=== PATIENT | female | born 1985 | race Caucasian/White ===

== ENCOUNTER 2018-03-22 15:25 | Outpatient (REF) | payer MEDICAID, SELFPAY ==
--- NOTE | 2018-03-22 15:00 | PAPFT_PTH ---
PATIENT: Sri Chiang LOC: [facility] U#:[id number] AGE/SX: 32/F ROOM: RE03/22/[address]: Rani Catherine CNM : 1985 BED: DIS: 03/22/2018 SPEC #: [id number] RECD: 03/22/18 17:40 STATUS: LEONORA REHermelindo #: [id number] KANDACE: 03/22/18 15:[address]: Rani Catherine DEPT: [facility] Cytology RECD BY: Maura Napier ENTERED: 03/22/18 17:40 SP TYPE: PAPFT OTHR DR: Risa Noble Tissues: 1 - CX/ENDOCX FOR PAP SMEARS Procedures: PAP THIN PREP/UVM Screening HPV DNA PROBE Comments: [id number]
== END 2018-03-22 15:45 ==
LOC: LBN 15:25
PROVIDERS: PCP Family Medicine; Visit Provider Advanced Practice Midwife
DX: Z12.4 Encounter for screening for malignant neoplasm of cervix (principal); Z11.51 Encounter for screening for human papillomavirus (HPV)
CPT/HCPCS: 88142; 87624

== ENCOUNTER 2018-08-24 21:08 | Emergency (ER) | payer MEDICAID, SELFPAY ==
[2018-08-24 21:14] VITALS: BP 120/75; PULSE 67; RESP 18; TEMP 36.8; O2SAT 100
--- NOTE | 2018-08-24 22:14 | ED.GENADUL_ITS ---
Discharge Plan Disposition Patient Disposition: HOME Condition: Good Discharge Details Chief Complaint: Laceration Clinical Impression: Finger laceration Primary Care Provider: Risa Noble ED Provider: Wesley Escamilla Meds and New Rx's Prescriptions: Continued PNV cmb#95-ferrous fumarate-FA [] 1 EACH tablet 1 ea PO DAILY RF: 0 cholecalciferol (vitamin D3) 2,000 unit tablet 4,000 unit PO DAILY RF: 0 Discharge Instructions Instructions: Finger Laceration (ED) Additional Instructions: Sutures should come out in about 10 days. Watch for signs of infection. Keep the wound clean and dry. Return to ED for suture removal or for any evidence of infection. Referrals: [facility] [Provider Group] Medical Decision Making Patient with a small laceration to the tip of the left ring finger. Still has some bleeding. Because of its location glue not a viable option. Agreed to sutures and digital block. Digital block of the left ring finger done with 1% lidocaine. Wound irrigated. Inadequate anesthesia obtained with digital block. Small amount of 1% lidocaine injected into the wound margins. Still inadequate anesthesia. Patient reports lidocaine use with the dentist does not result in adequate anesthesia either. She elected to have sutures placed with the digital block and local that had been given. Two 5-0 nylon sutures placed. Wound then dressed with Xeroform and gauze by me. Tetanus up-to-date. Patient discharged with instructions to watch for signs of infection and to have sutures out in 10 days. HPI General Mode of arrival: ambulatory . Date/Time Provider Initiated Documentation: 08/24/18 21:19 . Limitations to Documentation: no limitations . Information obtained by: patient . HPI Narrative: Patient presents to ED with a laceration to the tip of her left ring finger. 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 It occurred earlier in the afternoon. It is been bleeding and is quite sensitive and painful. She eventually came in this evening believing it would need sutures since it was still bleeding. She is up-to-date on tetanus. Related Data Home Medications Medication Instructions Recorded Confirmed PNV cmb#95-ferrous fumarate-FA 1 ea PO DAILY 09/13/16 08/24/18 [] cholecalciferol (vitamin D3) 2,000 4,000 unit PO DAILY tab 03/22/18 08/24/18 unit tablet Allergies Allergy/AdvReac Type Severity Reaction Status Date / Time No Known Allergies Allergy Unverified 08/24/18 21:19 General Stated Complaint: Laceration MINNIE: 4 Review of Systems Musculoskeletal Denies tingling Integumentary/Breasts Reports wounds Neurologic Denies tingling and Denies paresthesias [facility] Medical History Duplex kidney Surgical History Repair, ACL Family History Mother Hyperlipidemia Breast cancer Grandmother Breast cancer Social History Smoking/Tobacco Use Status: Never Alcohol Intake: never Do you feel safe in your relationship?: Yes Exam Const General: cooperative, comfortable and no acute distress Orientation: alert and oriented x3 Skin Trauma: laceration Other: Approximately 0.5 cm laceration to the tip of the left ring finger. No involvement of the nail or nailbed. Extrem Other: Left hand with no swelling, decreased range of motion, weakness, or sensory deficit. Course Vital Signs Temperature 98.2 F 08/24/18 21:14 Pulse 67 08/24/18 21:14 Respiratory Rate 18 08/24/18 21:14 Blood Pressure 120/75 08/24/18 21:14 Pulse Oximetry 100 08/24/18 21:14 Temperature 98.2 F 08/24/18 21:14 Temperature Source Skin 08/24/18 21:14 Pulse 67 08/24/18 21:14 Respiratory Rate 18 08/24/18 21:14 Respiratory Effort Non-Labored 08/24/18 21:16 Blood Pressure 120/75 08/24/18 21:14 Blood Pressure Position Supine 08/24/18 21:14 Pulse Oximetry 100 08/24/18 21:14 Oxygen Delivery Method Room Air 08/24/18 21:14 Oxygen Flow Rate 0 08/24/18 21:14 Pain Level 4 08/24/18 21:14 Procedures Laceration Laceration 1: Site: hand Side (If applicable): left Size (cm): 0.5 Description: linear Depth: simple, single layer Local Anesthetic: Lidocaine 1% Pre-repair: irrigated extensively Skin layer closed with: nylon Size (cm): 5-0 Number of sutures: 2 Technique: simple, interrupted Nerve Block Nerve Block 1: Local Anesthetic: Lidocaine 1% Amount of anesthesia used (mL): 2 Side: left Nerve Blocks: digital Procedure Successful: Yes Patient Tolerated Procedure: well Complications: pain with procedure and inadequate anesthesia
== END 2018-08-24 22:19 | disposition home or self-care (01) ==
PROVIDERS: Emergency Provider Emergency Medicine; PCP Family Medicine
DX: S61.215A Laceration without foreign body of left ring finger without damage to nail, initial encounter (principal); W29.0XXA Contact with powered kitchen appliance, initial encounter; Y93.G1 Activity, food preparation and clean up
CPT/HCPCS: 12001

== ENCOUNTER 2018-11-21 10:32 | Outpatient (CLI) | payer BC, SELFPAY ==
--- NOTE | 2018-11-21 10:40 | DI.US_ITS ---
APPROVED REPORT EXAM: Comprehensive 2D, Doppler, and color-flow Echocardiogram Indications: daughter has bicuspid AOV and coarctation of aorta. pediatric dental hygienist reccomended f irst degree family members be tested with ECHO for cardiac anomalies even if asymptomatic family hx o f congenital anomalies z82.79 Left Ventricle The left ventricle is normal. Left ventricular systolic function is normal. The posterior wall thickn ess is mildly increased. The septum is normal. There is normal LV segmental wall motion. The left abbi tricular diastolic function is normal. LVEF is 55-59%. Right Ventricle The right ventricle is normal size. The right ventricular systolic function is normal. Atria The left atrium is normal. The right atrium size is normal. Aortic Valve The aortic valve is normal in structure. There is no aortic valvular stenosis. No aortic regurgitatio n is present. Mitral Valve The mitral valve is normal in structure. There is no mitral valve regurgitation noted. Tricuspid Valve The tricuspid valve is normal in structure. Mild tricuspid regurgitation. Pulmonic Valve The pulmonary valve is normal in structure. There is no pulmonic valvular regurgitation. Great Vessels The aortic root size is normal. The ascending aorta size is normal. The IVC is normal in size and col lapses >50% with inspiration. Pericardium There is no pericardial effusion. 2D Dimensions IVSd 1.0 cm F: 0.6-1.0 PWd 1.0 cm F: 0.6 - 1.0 LVDd 4.7 cm F: 3.9 - 5.3 LVDs 3.3 cm F: 2.2 - 3.5 Aortic Root 3.0 cm F: 2.7 - 3.3 Left Atrium 3.1 cm F: 2.7 - 3.8 LVOT 2.1 cm (M/F) 1.5-2.5 Ascending Aorta 2.8 cm F: 2.3 - 3.1 LVEF (Landers's) 55.1 % F: 54 - 74 LV Volume 62.6 mL F: 46 - 106 LV Volume Index 36.1 mL/m2 F: 29 - 61 FS 30.0 % LV Diastology E/A Ratio 1.9 MED E' 0.1 (<0.07 m/s) LV E/e MED 9.2 (>14) LAT E' 0.2 (<0.1 m/s) LV E/e LAT 4.3 (>14) Aortic Valve LVOT Peak Deandre. 1.1 m/s LVOT Peak Gr. 4.9 mmHg LVOT Mean Gr. 2.7 mmHg LVOT VTI 0.2 m AO VTI 0.3 (0.18-0.25 m) GEORGES (VTI) 1.4 (2.5-4.5 cm2) Mitral Valve MV A Velocity 0.5 (0.4-1.3 m/s) E/A Ratio 1.9 MV Decel. Time 174.0 (160-240 msec) MV PHT 50.5 msec MVA PHT 4.4 cm2 Tricuspid Valve TR P. Velocity 2.2 m/s TR P. Gradient 18.5 mmHg Other Information Study Quality: Good Conclusion Left Ventricle : The posterior wall thickness is mildly increased. The septum is normal. The left abbi tricular diastolic function is normal. Left ventricular systolic function is normal. There is normal LV segmental wall motion. LVEF is 55-59%. Right Ventricle : The right ventricle is normal size. The right ventricular systolic function is norm al. Atria : The left atrium is normal. The right atrium size is normal. Aortic Valve : The aortic valve is normal in structure. There is no aortic valvular stenosis. There is no evidence of bicuspid aortic valve or other aortopathy. Mitral Valve : The mitral valve is normal in structure. There is no mitral valve regurgitation noted. Tricuspid Valve : The tricuspid valve is normal in structure. Mild tricuspid regurgitation. Great Vessels : The aortic root size is normal. Pericardium : There is no pericardial effusion. Great Vessels : The IVC is normal in size and collapses >50% with inspiration.
== END 2018-11-21 10:52 ==
PROVIDERS: PCP Family Medicine; Visit Provider Family Medicine
DX: Z82.49 Family history of ischemic heart disease and other diseases of the circulatory system (principal); Z13.6 Encounter for screening for cardiovascular disorders; I36.1 Nonrheumatic tricuspid (valve) insufficiency
CPT/HCPCS: 93306

== ENCOUNTER 2019-06-28 09:06 | Outpatient (CLI) | payer BC, SELFPAY ==
--- NOTE | 2019-06-28 14:45 | DI.US_ITS ---
EXAM: US PELVIS TRANSVAGINAL CLINICAL HISTORY: pelvic pain and pressure,r10.2. TECHNIQUE: Transabdominal and tranvaginal imaging was performed using standard protocol. COMPARISON: No exams were available for comparison FINDINGS: KIDNEYS: Kidneys are symmetric in size. No evidence of renal calculi. No evidence of hydronephrosis. No renal mass or cyst identified. There is a question of a duplex collecting system of the right dante gomez. UTERUS: Anteverted. The uterus measures 7.9 x 4.5 x 4.9 cm. Endometrium: 6 millimeters in thickness. Myometrium: Unremarkable. Cervix: Unremarkable. OVARIES: Right: Cyst or mass: 1.8 centimeter corpus luteum cyst. Left: Cyst or mass: None. DOPPLER: Color: Symmetric and uniform flow to both ovaries. No hyperemia. Duplex: Normal ovarian arterial waveforms visualized. There is a question of mildly prominent parauterine vessels, right greater than left, which could be seen in pelvic congestion syndrome. CUL-DE-SAC: Free fluid: None. IMPRESSION: 1. Normal-appearing uterus with endometrial stripe within normal limits. Mildly prominent parauterin e vessels which could indicate pelvic congestion syndrome. 2. Unremarkable bilateral ovaries. DATA REPOSITORY:
== END 2019-06-28 09:26 ==
PROVIDERS: PCP Family Medicine; Visit Provider Obstetrics & Gynecology Gynecology
DX: R10.2 Pelvic and perineal pain (principal); N83.11 Corpus luteum cyst of right ovary
CPT/HCPCS: 76830; 76856

== ENCOUNTER 2019-08-17 01:02 | Outpatient (CLI) | payer BC, MEDICAID, SELFPAY ==
[2019-08-17 09:47] LABS: HCT 39.2 % (36.0-46.0); HGB 13.3 g/dL (12.0-15.5); Mean Corp. HGB Concentration 33.9 g/dL (32.0-36.0); Mean Corpuscular Hemoglobin 29.8 pg (27.0-33.0); Mean Corpuscular Volume 87.7 fL (80-95); Mean Platelet Volume 9.9 fL (8.0-11.0); Platelet Count 340 x1000/uL (130-400); RBC 4.47 m/cumm (4.00-5.20); RBC Distribution Width 12.9 % (11.7-14.6); White Blood Cell Count 6.97 k/cumm (4.4-10.8)
[2019-08-17 10:40] LABS: Ferritin 41 ng/mL (8-252); TSH (W/Ref FT4) 2.22 uIU/mL (0.36-3.74)
[2019-08-17 17:28] LABS: Anion Gap 9.5 mmol/L (3-11); BUN 16 mg/dL (7-18); CO2 25.5 mmol/L (21.0-32.0); CREATININE 0.77 mg/dL (0.55-1.02); Calcium 9.4 mg/dL (8.5-10.1); Chloride 103 mmol/L (98-107); Glucose 113 mg/dL (74-106); Potassium 4.1 mmol/L (3.5-5.1); Sodium 138 mmol/L (136-145)
[2019-08-17 17:47] LABS: Calculated LDL 106 mg/dL (<100); Cholesterol 188 mg/dL (<200); HDL Cholesterol 35 mg/dL (40-60); Triglyceride 237 mg/dL (<150)
[2019-08-20 08:24] LABS: Vitamin D 25 Total 26.3 ng/ml (30-100)
== END 2019-08-17 01:22 ==
PROVIDERS: PCP Family Medicine; Visit Provider Advanced Practice Midwife
DX: R53.83 Other fatigue (principal); R63.5 Abnormal weight gain; Z83.49 Family history of other endocrine, nutritional and metabolic diseases; L65.9 Nonscarring hair loss, unspecified; Z82.62 Family history of osteoporosis; Z82.79 Family history of other congenital malformations, deformations and chromosomal abnormalities
CPT/HCPCS: 36415; 80048; 80061; 82306; 85027; 82728; 84443

== ENCOUNTER 2019-10-12 16:29 | Outpatient (REF) | payer BC, MEDICAID, SELFPAY | END 2019-10-12 16:49 | LOC: LBN 16:29 | PROVIDERS: PCP Family Medicine; Visit Provider Advanced Practice Midwife | DX: N89.8 Other specified noninflammatory disorders of vagina (principal) | CPT/HCPCS: 87480; 87510; 87660 ==

== ENCOUNTER 2019-10-17 10:00 | Outpatient (CLI) | payer BC, MEDICAID, SELFPAY ==
[2019-10-17 12:37] LABS: Bilirubin Negative (Negative); Blood Moderate (Negative); Clarity Clear (Clear); Glucose Negative (Negative); Ketones Negative (Negative); Leukocyte Esterase Moderate (Negative); Nitrite Negative (Negative); Urobilinogen 0.2 EU/dL (Up TO 0.2); pH 5.5 (5-8)
[2019-10-17 12:49] LABS: Bacteria Negative HPF (Negative); Casts Negative LPF (Negative); Crystals Negative HPF (Negative); Epithelial Cells Moderate HPF (Negative); Mucus Negative (Negative); WBC >50 HPF (0-5)
[2019-10-17 15:28] LABS: C & S Indicated? C&S Done As Ordered
== END 2019-10-17 10:20 ==
PROVIDERS: PCP Family Medicine; Visit Provider Advanced Practice Midwife
DX: R30.0 Dysuria (principal)
CPT/HCPCS: 87077; 81003; 81015; 87086; 87186

== ENCOUNTER 2019-11-12 20:03 | Outpatient (REF) | payer BC, MEDICAID, SELFPAY ==
[2019-11-15 17:17] LABS: Patient Race White; SARS-CoV-2 RNA Undetected (Undetected); SARS-CoV-2 Specimen Source Nasal
== END 2019-11-12 20:23 ==
LOC: NCHCN 20:03
PROVIDERS: PCP Family Medicine; Visit Provider Nurse Practitioner Family
DX: R50.9 Fever, unspecified (principal); R05 Cough
CPT/HCPCS: U0003

== ENCOUNTER 2020-01-24 20:01 | Outpatient (REF) | payer BC, MEDICAID, SELFPAY ==
[2020-01-28 15:33] LABS: Chlamydia Result Negative (Negative); GC Result Negative (Negative)
== END 2020-01-24 20:21 ==
LOC: LBN 20:01
PROVIDERS: PCP Family Medicine; Visit Provider Advanced Practice Midwife
DX: Z11.3 Encounter for screening for infections with a predominantly sexual mode of transmission (principal)
CPT/HCPCS: 87491; 87591

== ENCOUNTER 2020-02-25 10:48 | Outpatient (REF) | payer BC, MEDICAID, SELFPAY ==
[2020-02-26 15:39] LABS: Chlamydia Result Negative (Negative); GC Result Negative (Negative)
== END 2020-02-25 11:08 ==
LOC: LBN 10:48
PROVIDERS: PCP Family Medicine; Visit Provider Advanced Practice Midwife
DX: N94.89 Other specified conditions associated with female genital organs and menstrual cycle (principal); Z11.3 Encounter for screening for infections with a predominantly sexual mode of transmission
CPT/HCPCS: 87491; 87591; 87480; 87510; 87660

== ENCOUNTER 2020-05-07 01:08 | Outpatient (CLI) | payer BC, SELFPAY ==
--- NOTE | 2020-05-07 06:45 | DI.US_ITS ---
EXAM: US PELVIS TRANSVAGINAL CLINICAL HISTORY: IUD surveillence, right sided pelvic pain,r10.2 TECHNIQUE: Ultrasound of the pelvis was performed both transabdominal and transvaginal. COMPARISON: US US PELVIS TRANSVAGINAL from 06/28/2019 FINDINGS: UTERUS: Measures 6 cm length x 5 cm AP x 5 point cm wide. There are no uterine fibroids.There is an IUD in the uterine canal which appears to be in satisfactor y position Endometrial thickness measures 5 mm. There is no fluid in the endometrial canal. CERVIX: There are no obvious nabothian cysts. RIGHT OVARY: Measures 1.9 x 1.3 x 1.3 centimeter cm Contains follicles and a cyst which measures 11 by 8 millimeters, the dominant follicle. LEFT OVARY: Measures 1.7 x 1.1 x 1.9 cm Small follicles. CUL-DE-SAC: No extraovarian adnexal masses. No free fluid. IMPRESSION: 1. Normal-appearing uterus. IUD within the uterine cavity. 2. There is an 11 x 8 millimeter cyst in right ovary probably a dominant follicle. 3. No free fluid evident in the adnexal regions and cul-de-sac. DATA REPOSITORY:
== END 2020-05-07 01:28 ==
PROVIDERS: PCP Family Medicine; Visit Provider Nurse Practitioner Women's Health
DX: R10.2 Pelvic and perineal pain (principal); N83.201 Unspecified ovarian cyst, right side; Z97.5 Presence of (intrauterine) contraceptive device
CPT/HCPCS: 76830; 76856

== ENCOUNTER 2020-05-07 02:11 | Outpatient (CLI) | payer BC, SELFPAY ==
[2020-05-08 09:31] LABS: Hepatitis B Surface Ag Negative (Negative)
[2020-05-08 10:14] LABS: Hepatitis C Ab w Rflx HCV PCR Negative (Negative)
[2020-05-08 10:22] LABS: HIV-1/2 Ag & Ab Screen Negative (Negative)
[2020-05-08 16:01] LABS: Syphilis Total Ab w/Reflex Nonreactive (Nonreactive)
== END 2020-05-07 02:12 | disposition home or self-care (01) ==
LOC: LBO 02:11
PROVIDERS: PCP Family Medicine; Visit Provider Advanced Practice Midwife
DX: Z34.91 Encounter for supervision of normal pregnancy, unspecified, first trimester (principal); Z11.4 Encounter for screening for human immunodeficiency virus [HIV]; Z11.59 Encounter for screening for other viral diseases
CPT/HCPCS: 36415; 86803; 87340; 87389; 86780

== ENCOUNTER 2020-06-04 10:48 | Outpatient (REF) | payer BC, SELFPAY ==
--- NOTE | 2020-06-03 09:20 | PAPFT_PTH ---
PATIENT: Sri Chiang LOC: [facility] U#:[id number] AGE/SX: 34/F ROOM: RE06/04/[address]: Janna Quiñonez NP : 1985 BED: DIS: 06/04/2020 SPEC #: [id number] RECD: 06/04/20 12:56 STATUS: LEONORA ANDREA #: [id number] KANDACE: 06/03/20 09:[address]: Janna Quiñonez NP DEPT: [facility] Cytology RECD BY: Maura Napier ENTERED: 06/04/20 12:56 SP TYPE: PAPFT OTHR DR: Risa Noble Tissues: 1 - CX/ENDOCX FOR PAP SMEARS Procedures: PAP THIN PREP/[facility]VM Screening HPV DNA PROBE Comments: [id number]
== END 2020-06-04 10:49 | disposition home or self-care (01) ==
LOC: LBN 10:48
PROVIDERS: PCP Family Medicine; Visit Provider Nurse Practitioner Women's Health
DX: Z12.4 Encounter for screening for malignant neoplasm of cervix (principal); Z87.42 Personal history of other diseases of the female genital tract; Z11.51 Encounter for screening for human papillomavirus (HPV)
CPT/HCPCS: 88142; 87624

== ENCOUNTER 2021-02-11 16:00 | Outpatient (REF) | payer BC, SELFPAY ==
[2021-02-13 15:16] LABS: Chlamydia Result Negative (Negative); GC Result Negative (Negative)
== END 2021-02-11 16:01 | disposition home or self-care (01) ==
LOC: LBN 16:00
PROVIDERS: PCP Family Medicine; Visit Provider Advanced Practice Midwife
DX: Z20.2 Contact with and (suspected) exposure to infections with a predominantly sexual mode of transmission (principal)
CPT/HCPCS: 87491; 87591

== ENCOUNTER 2021-02-16 11:22 | Outpatient (CLI) | payer BC, SELFPAY ==
[2021-02-16 15:06] LABS: HCT 40.8 % (36.0-46.0); HGB 13.3 g/dL (11.2-15.7); MCH 29.1 pg (27.0-33.0); MCHC 32.6 % (32.0-36.0); MCV 89.3 fL (80-95); MPV 9.8 fL (8.0-11.0); Platelet Count 393 10^3/uL (130-400); RBC 4.57 10^6/uL (3.93-5.22); RDW 12.8 % (11.7-14.6); RDW-SD 41.9 fL; WBC 10.39 10^3/uL (4.4-10.8)
[2021-02-16 17:02] LABS: TSH (W/Ref FT4) 1.55 uIU/mL (0.36-3.74)
[2021-02-16 17:13] LABS: Vitamin D 25 Total 25.1 ng/mL (30-100)
[2021-02-17 11:56] LABS: HIV-1/2 Ag & Ab Screen Negative (Negative)
[2021-02-17 11:57] LABS: Syphilis Serology (RPR) Negative (Negative)
== END 2021-02-16 11:23 | disposition home or self-care (01) ==
LOC: LBO 11:24
PROVIDERS: PCP Family Medicine; Visit Provider Advanced Practice Midwife
DX: Z20.2 Contact with and (suspected) exposure to infections with a predominantly sexual mode of transmission (principal)
CPT/HCPCS: 36415; 82306; 85027; 87389; 84443; 86592

== ENCOUNTER 2021-05-05 16:28 | Outpatient (REF) | payer BC, SELFPAY ==
[2021-05-07 11:26] LABS: COVID-19 RT-PCR UVMMC Result Negative (Negative)
== END 2021-05-05 16:29 | disposition home or self-care (01) ==
LOC: NCHCN 16:28
PROVIDERS: PCP Nurse Practitioner Family; Visit Provider Nurse Practitioner Family
DX: Z20.822 Contact with and (suspected) exposure to COVID-19 (principal); J02.9 Acute pharyngitis, unspecified
CPT/HCPCS: U0003; 87070

== ENCOUNTER 2021-05-07 17:55 | Outpatient (REF) | payer BC, SELFPAY | END 2021-05-07 17:56 | disposition home or self-care (01) | LOC: LBN 17:55 | PROVIDERS: PCP Nurse Practitioner Family; Visit Provider Physician Assistant Medical | DX: R82.998 Other abnormal findings in urine (principal); J02.9 Acute pharyngitis, unspecified | CPT/HCPCS: 87070; 87086 ==

== ENCOUNTER 2021-06-29 16:18 | Outpatient (REF) | payer BC, SELFPAY ==
--- NOTE | 2021-06-29 16:05 | PAPFT_PTH ---
PATIENT: Sri Chiang LOC: [facility] U#:[id number] AGE/SX: 35/F ROOM: RE06/29/[address]: Unique Stevens CNM : 1985 BED: DIS: 06/29/2021 SPEC #: [id number] RECD: 06/29/21 18:13 STATUS: LEONORA REQ #: [id number] KANDACE: 06/29/21 16:[address]: Unique Stevens DEPT: [facility] Cytology RECD BY: Maura Napier ENTERED: 06/29/21 18:14 SP TYPE: PAPFT OTHR DR: Maximo Leiva Tissues: 1 - CX/ENDOCX FOR PAP SMEARS Procedures: PAP THIN PREP/UVM Screening HPV DNA PROBE Comments: [id number] (CHLAMYDIA/GC)
[2021-07-01 08:41] LABS: Chlamydia Result Negative (Negative); GC Result Negative (Negative)
== END 2021-06-29 16:19 | disposition home or self-care (01) ==
LOC: LBN 16:18
PROVIDERS: PCP Nurse Practitioner Family; Visit Provider Advanced Practice Midwife
DX: N89.8 Other specified noninflammatory disorders of vagina (principal); R30.0 Dysuria; Z12.4 Encounter for screening for malignant neoplasm of cervix; Z11.51 Encounter for screening for human papillomavirus (HPV)
CPT/HCPCS: 87491; 87591; 88142; 87086; 87480; 87510; 87624; 87660

== ENCOUNTER 2021-07-16 10:04 | Outpatient (REF) | payer BC, SELFPAY | END 2021-07-16 10:05 | disposition home or self-care (01) | LOC: LBN 10:04 | PROVIDERS: PCP Nurse Practitioner Family; Visit Provider Advanced Practice Midwife | DX: R30.0 Dysuria (principal) | CPT/HCPCS: 87086 ==

== ENCOUNTER 2021-08-05 19:24 | Outpatient (REF) | payer BC, SELFPAY ==
[2021-08-08 14:15] LABS: COVID-19 RT-PCR UVMMC Result Negative (Negative)
== END 2021-08-05 19:25 | disposition home or self-care (01) ==
LOC: NCHCN 19:24
PROVIDERS: PCP Nurse Practitioner Family; Visit Provider Family Medicine
DX: Z20.822 Contact with and (suspected) exposure to COVID-19 (principal); R09.81 Nasal congestion
CPT/HCPCS: U0003

== ENCOUNTER 2022-03-08 17:11 | Outpatient (REF) | payer BC, SELFPAY ==
[2022-03-10 13:14] LABS: Chlamydia Result Negative (Negative); GC Result Negative (Negative)
== END 2022-03-08 17:12 | disposition home or self-care (01) ==
LOC: LBN 17:11
PROVIDERS: PCP Student in an Organized Health Care Education/Training Program; Visit Provider Advanced Practice Midwife
DX: N94.10 Unspecified dyspareunia (principal); Z11.3 Encounter for screening for infections with a predominantly sexual mode of transmission
CPT/HCPCS: 87491; 87591; 87480; 87510; 87660

== ENCOUNTER 2022-03-16 03:15 | Outpatient (CLI) | payer BC, SELFPAY ==
[2022-03-16 08:04] LABS: Hemoglobin A1C 5.5 % (<5.7)
[2022-03-16 08:44] LABS: Cholesterol 206 mg/dL (<200); HDL Cholesterol 41 mg/dL (40-60); LDL CHOLESTEROL 145 mg/dL (<100)
[2022-03-17 09:39] LABS: Hepatitis B Surface Ag Negative (Negative)
[2022-03-17 10:20] LABS: Hepatitis C Ab w Rflx HCV PCR Negative (Negative)
[2022-03-17 10:29] LABS: Rubella IgG Ab (UVM) Positive (See Note); Varicella IgG Antibody Positive (See Note)
[2022-03-17 10:36] LABS: HIV-1/2 Ag & Ab Screen Negative (Negative)
[2022-03-17 16:13] LABS: Syphilis IgG w/Reflex Nonreactive (Nonreactive)
== END 2022-03-16 03:16 | disposition home or self-care (01) ==
LOC: LBO 03:15
PROVIDERS: PCP Student in an Organized Health Care Education/Training Program; Visit Provider Advanced Practice Midwife
DX: N94.19 Other specified dyspareunia (principal); Z77.21 Contact with and (suspected) exposure to potentially hazardous body fluids; Z11.3 Encounter for screening for infections with a predominantly sexual mode of transmission; Z11.4 Encounter for screening for human immunodeficiency virus [HIV]; Z11.59 Encounter for screening for other viral diseases; E78.5 Hyperlipidemia, unspecified; Z13.1 Encounter for screening for diabetes mellitus; N89.8 Other specified noninflammatory disorders of vagina
CPT/HCPCS: 36415; 83721; 86787; 86803; 87340; 87389; 82465; 83036; 83718; 86762; 86780

== ENCOUNTER 2022-05-20 12:57 | Outpatient (CLI) | payer BC, SELFPAY ==
[2022-05-20 08:59] LABS: HCT 39.7 % (36.0-46.0); HGB 13.2 g/dL (11.2-15.7); MCH 29.7 pg (27.0-33.0); MCHC 33.2 % (32.0-36.0); MCV 89 fL (80-95); MPV 9.8 fL (8.0-11.0); Platelet Count 335 10^3/uL (130-400); RBC 4.44 10^6/uL (3.93-5.22); RDW-SD 42.8 fL; WBC 7.84 10^3/uL (4.4-10.8)
[2022-05-20 09:47] LABS: ALT 21 U/L (14-59); AST 10 U/L (15-37); Albumin 3.9 g/dL (3.4-5.0); Alkaline Phosphatase 65 U/L (46-116); Anion Gap 8.1 mmol/L (3-11); BUN 14 mg/dL (7-18); Bilirubin, Direct 0.1 mg/dL (0.0-0.2); Bilirubin, Total 0.8 mg/dL (0.2-1.0); CO2 26.9 mmol/L (21.0-32.0); CREATININE 0.8 mg/dL (0.55-1.02); Calcium 9.6 mg/dL (8.5-10.1); Chloride 105 mmol/L (98-107); Estimated GFR 98.48 (mL/min/1.73m2); Glucose 103 mg/dL (74-106); Potassium 4.1 mmol/L (3.5-5.1); Sodium 140 mmol/L (136-145); TSH (W/Ref FT4) 1.81 uIU/mL (0.36-3.74)
[2022-05-20 10:00] LABS: Vitamin D 25 Total 26.4 ng/mL (30-100)
[2022-05-23 15:25] LABS: Lab Add On Test DONE
[2022-05-23 16:56] LABS: Hemoglobin A1C 5.6 % (<5.7)
[2022-05-24 16:28] LABS: Apolipoprotein B, Serum 96 mg/dL (48-124); Beta VLDL Cholesterol Not Detected mg/dL (<15); Beta VLDL Triglycerides Not Detected mg/dL (<15); Cholesterol, Total, CDC 186 mg/dL; Chylomicron Cholesterol Not Detected; Chylomicron Triglycerides Not Detected; HDL Cholesterol, CDC 37 mg/dL (>=50); LDL Cholesterol 138 mg/dL; LDL Triglycerides 30 mg/dL (<=50); Lp(a) Cholesterol <5 mg/dL (<5); LpX Not detected; Triglycerides, CDC 66 mg/dL; VLDL Cholesterol 11 mg/dL (<30); VLDL Triglycerides 25 mg/dL (<120)
== END 2022-05-20 12:58 | disposition home or self-care (01) ==
PROVIDERS: PCP Student in an Organized Health Care Education/Training Program; Visit Provider Student in an Organized Health Care Education/Training Program
DX: E55.9 Vitamin D deficiency, unspecified (principal); R63.4 Abnormal weight loss; F43.21 Adjustment disorder with depressed mood; E78.5 Hyperlipidemia, unspecified; R73.9 Hyperglycemia, unspecified; B37.2 Candidiasis of skin and nail
CPT/HCPCS: 36415; 80048; 80061; 80076; 82306; 85027; 82172; 82664; 83036; 84443

== ENCOUNTER 2022-07-06 12:12 | Outpatient (REF) | payer BC, SELFPAY ==
--- NOTE | 2022-07-06 10:50 | PAPFT_PTH ---
PATIENT: Sri Chiang LOC: [facility] U#:[id number] AGE/SX: 36/F ROOM: RE07/06/[address]: Unique Stevens CNM : 1985 BED: DIS: 07/06/2022 SPEC #: [id number] RECD: 07/06/22 12:44 STATUS: LEONORA REQ #: [id number] KANDACE: 07/06/22 10:[address]: Unique Stevens DEPT: [facility] Cytology RECD BY: Maura Napier ENTERED: 07/06/22 12:44 SP TYPE: PAPFT OTHR DR: Bruna Kay, Tissues: 1 - CX/ENDOCX FOR PAP SMEARS Procedures: PAP THIN PREP/UVM Screening HPV DNA PROBE Comments: [id number]
[2022-07-07 13:22] LABS: Chlamydia Result Negative (Negative); GC Result Negative (Negative)
== END 2022-07-06 12:13 | disposition home or self-care (01) ==
LOC: LBN 12:12
PROVIDERS: PCP Student in an Organized Health Care Education/Training Program; Visit Provider Advanced Practice Midwife
DX: N89.8 Other specified noninflammatory disorders of vagina (principal); R39.15 Urgency of urination; Z11.3 Encounter for screening for infections with a predominantly sexual mode of transmission; Z12.4 Encounter for screening for malignant neoplasm of cervix; Z11.51 Encounter for screening for human papillomavirus (HPV); R87.810 Cervical high risk human papillomavirus (HPV) DNA test positive
CPT/HCPCS: 87491; 87591; 88142; 87086; 87480; 87510; 87624; 87660

== ENCOUNTER 2022-10-27 04:01 | Outpatient (CLI) | payer BC, SELFPAY ==
[2022-10-27 08:41] LABS: Anion Gap 7.3 mmol/L (3-11); BUN 20 mg/dL (7-18); CO2 26.7 mmol/L (21.0-32.0); CREATININE 0.7 mg/dL (0.55-1.02); Calcium 9.1 mg/dL (8.5-10.1); Calculated LDL 127 mg/dL (<100); Chloride 101 mmol/L (98-107); Cholesterol 187 mg/dL (<200); Estimated GFR 114.88 (mL/min/1.73m2); Glucose 97 mg/dL (74-106); HDL Cholesterol 44 mg/dL (40-60); Magnesium 1.8 mg/dL (1.8-2.4); Potassium 3.8 mmol/L (3.5-5.1); Sodium 135 mmol/L (136-145); Triglyceride 80 mg/dL (<150)
[2022-10-27 09:07] LABS: Vitamin D 25 Total 37.8 ng/mL (30-100)
[2022-10-28 10:52] LABS: Hepatitis C Ab w Rflx HCV PCR Negative (Negative)
[2022-10-28 22:23] LABS: Hepatitis Be Antigen Negative (Negative)
== END 2022-10-27 04:02 | disposition home or self-care (01) ==
LOC: LBO 04:01
PROVIDERS: PCP Student in an Organized Health Care Education/Training Program; Visit Provider Student in an Organized Health Care Education/Training Program
DX: Z13.220 Encounter for screening for lipoid disorders (principal); Z20.5 Contact with and (suspected) exposure to viral hepatitis; R79.89 Other specified abnormal findings of blood chemistry; N89.8 Other specified noninflammatory disorders of vagina; R39.15 Urgency of urination; R39.9 Unspecified symptoms and signs involving the genitourinary system
CPT/HCPCS: 36415; 80048; 80061; 82306; 86803; 87077; 83735; 87086; 87186; 87350

== ENCOUNTER 2022-12-15 19:01 | Outpatient (REF) | payer BC, SELFPAY ==
[2022-12-15 13:48] LABS: Bilirubin Negative (Negative); Blood Negative (Negative); Clarity Clear (Clear); Glucose Negative (Negative); Ketones Negative (Negative); Leukocyte Esterase Negative (Negative); Nitrite Negative (Negative); Specific Gravity <= 1.005 (1.005-1.025); Urobilinogen 0.2 mg/dL (Up to 0.2); pH 5.5 (5-8)
== END 2022-12-15 19:02 | disposition home or self-care (01) ==
LOC: LBN 19:01
PROVIDERS: PCP Student in an Organized Health Care Education/Training Program; Visit Provider Nurse Practitioner Gerontology
DX: R39.15 Urgency of urination (principal)
CPT/HCPCS: 81003; 87086

== ENCOUNTER 2023-01-04 15:05 | Outpatient (REF) | payer BC, SELFPAY ==
[2023-01-04 14:04] LABS: Bilirubin Negative (Negative); Blood Small (Negative); Clarity Clear (Clear); Glucose Negative (Negative); Ketones Negative (Negative); Leukocyte Esterase Trace (Negative); Nitrite Negative (Negative); Specific Gravity 1.015 (1.005-1.025); Urobilinogen 0.2 mg/dL (Up to 0.2); pH 5.5 (5-8)
[2023-01-04 14:11] LABS: Bacteria Negative HPF (Negative); C & S Indicated? C&S Done As Ordered; Casts Negative LPF (Negative); Crystals Negative HPF (Negative); Epithelial Cells Few HPF (Negative); Mucus Negative (Negative); Other Cells Rare Renal (Negative); WBC 0-2 HPF (0-5)
== END 2023-01-04 15:06 | disposition home or self-care (01) ==
LOC: LBN 15:05
PROVIDERS: PCP Student in an Organized Health Care Education/Training Program; Visit Provider Nurse Practitioner Gerontology
DX: R39.15 Urgency of urination (principal); N30.90 Cystitis, unspecified without hematuria
CPT/HCPCS: 81003; 81015; 87086

== ENCOUNTER 2023-01-07 22:24 | Outpatient (REF) | payer BC, SELFPAY ==
[2023-01-10 12:54] LABS: Chlamydia Result Negative (Negative); GC Result Negative (Negative)
== END 2023-01-07 22:25 | disposition home or self-care (01) ==
LOC: LBN 22:24
PROVIDERS: PCP Student in an Organized Health Care Education/Training Program; Visit Provider Advanced Practice Midwife
DX: R30.0 Dysuria (principal)
CPT/HCPCS: 87491; 87591

== ENCOUNTER 2023-03-11 09:11 | Outpatient (REF) | payer BC, SELFPAY ==
[2023-03-12 18:36] LABS: Chlamydia Result Negative (Negative); GC Result Negative (Negative)
== END 2023-03-11 09:12 | disposition home or self-care (01) ==
LOC: LBN 09:11
PROVIDERS: PCP Student in an Organized Health Care Education/Training Program; Visit Provider Advanced Practice Midwife
DX: Z11.3 Encounter for screening for infections with a predominantly sexual mode of transmission (principal)
CPT/HCPCS: 87491; 87591

== ENCOUNTER 2023-03-14 04:54 | Outpatient (CLI) | payer BC, SELFPAY ==
[2023-03-14 18:46] LABS: Hepatitis C Ab w Rflx HCV PCR Negative (Negative)
== END 2023-03-14 04:55 | disposition home or self-care (01) ==
LOC: LBO 04:54
PROVIDERS: PCP Student in an Organized Health Care Education/Training Program; Visit Provider Advanced Practice Midwife
DX: Z11.3 Encounter for screening for infections with a predominantly sexual mode of transmission (principal)
CPT/HCPCS: 36415; 86803

== ENCOUNTER 2023-08-05 13:27 | Outpatient (REF) | payer BC, SELFPAY ==
--- NOTE | 2023-08-05 09:30 | PAPFT_PTH ---
PATIENT: Sri Chiang LOC: [facility] U#:[id number] AGE/SX: 38/F ROOM: RE08/05/[address]: Unique Archuleta : 1985 BED: DIS: 08/05/2023 SPEC #: [id number] RECD: 08/05/23 13:41 STATUS: LEONORA REHermelindo #: [id number] KANDACE: 08/05/23 09:[address]: Unique Archuleta DEPT: [facility] Cytology RECD BY: Maura Napier ENTERED: 08/05/23 13:41 SP TYPE: PAPFT OTHR DR: Bruna Kay DO Tissues: 1 - CX/ENDOCX FOR PAP SMEARS Procedures: PAP THIN PREP/UVM Screening HPV DNA PROBE Comments: [id number] (HPV 16 & 18/45)
[2023-08-06 13:46] LABS: Chlamydia Result Negative (Negative); GC Result Negative (Negative)
== END 2023-08-05 13:28 | disposition home or self-care (01) ==
LOC: LBN 13:27
PROVIDERS: PCP Student in an Organized Health Care Education/Training Program; Visit Provider Advanced Practice Midwife
DX: Z12.4 Encounter for screening for malignant neoplasm of cervix (principal); Z72.51 High risk heterosexual behavior
CPT/HCPCS: 87491; 87591; 88142; 87624

== ENCOUNTER 2023-08-22 11:09 | Outpatient (CLI) | payer BC, SELFPAY ==
[2023-08-22 09:52] LABS: Abs Immature Grans 0.02 10^3/uL (0.0-0.06); Absolute Basophil Count 0.03 10^3/uL (0.0-0.2); Absolute Eosinophil Count 0.06 10^3/uL (0.0-0.7); Absolute Neutrophil Count 3.76 10^3/uL (1.2-6.7); Basophils % 0.4 %; Eosinophils % 0.9 %; HCT 36.8 % (36.0-46.0); HGB 12.4 g/dL (11.2-15.7); Immature Grans % 0.3 %; Lymphocytes % 35.5 %; MCH 30.2 pg (27.0-33.0); MCHC 33.7 % (32.0-36.0); MCV 90 fL (80-95); MPV 10.3 fL (8.0-11.0); Monocytes % 7.4 %; Neutrophils % 55.5 %; Platelet Count 318 10^3/uL (130-400); RDW 12.7 % (11.7-14.6); RDW-SD 41.8 fL; WBC 6.77 10^3/uL (4.4-10.8)
[2023-08-22 10:43] LABS: Iron 61 ug/dL (50-170); Total Iron Binding Capacity 298 ug/dL (250-450); Transferrin Sat 20 % (15-50)
[2023-08-22 11:03] LABS: Folate 17.9 ng/mL (8.6-20.0)
[2023-08-22 11:09] LABS: Calculated LDL 147 mg/dL (<100); Cholesterol 209 mg/dL (<200); HDL Cholesterol 50 mg/dL (40-60); TSH (W/Ref FT4) 2.04 uIU/mL (0.36-3.74); Triglyceride 64 mg/dL (<150); Vitamin B12 496 pg/mL (193-986); Vitamin D 25 Total 37.3 ng/mL (30-100)
== END 2023-08-22 11:10 | disposition home or self-care (01) ==
LOC: LBO 11:09
PROVIDERS: PCP Student in an Organized Health Care Education/Training Program; Visit Provider Student in an Organized Health Care Education/Training Program
DX: R53.83 Other fatigue (principal); Z13.0 Encounter for screening for diseases of the blood and blood-forming organs and certain disorders involving the immune mechanism; K90.9 Intestinal malabsorption, unspecified; Z13.220 Encounter for screening for lipoid disorders
CPT/HCPCS: 36415; 80061; 82306; 82607; 82746; 83540; 83550; 84443; 85025

== ENCOUNTER 2023-09-20 16:02 | Outpatient (REF) | payer BC, SELFPAY ==
[2023-09-22 14:51] LABS: Chlamydia Result Negative (Negative); GC Result Negative (Negative)
== END 2023-09-20 16:03 | disposition home or self-care (01) ==
LOC: LBN 16:02
PROVIDERS: PCP Student in an Organized Health Care Education/Training Program; Visit Provider Student in an Organized Health Care Education/Training Program
DX: Z11.3 Encounter for screening for infections with a predominantly sexual mode of transmission (principal)
CPT/HCPCS: 87491; 87591

== ENCOUNTER 2023-10-24 11:41 | Outpatient (CLI) | payer BC, SELFPAY | END 2023-10-24 11:42 | disposition home or self-care (01) | LOC: BCD 11:45 | PROVIDERS: PCP Student in an Organized Health Care Education/Training Program; Visit Provider Obstetrics & Gynecology Gynecology | DX: N39.0 Urinary tract infection, site not specified (principal); B96.20 Unspecified Escherichia coli [E. coli] as the cause of diseases classified elsewhere | CPT/HCPCS: 87077; 87491; 87591; 87086; 87186 ==

== ENCOUNTER 2023-10-31 12:34 | Outpatient (CLI) | payer BC, SELFPAY ==
[2023-10-31 16:25] LABS: Iron 52 ug/dL (50-170)
[2023-10-31 23:07] LABS: Hepatitis B Surface Ag Negative (Negative)
[2023-10-31 23:31] LABS: HIV-1/2 Ag & Ab Screen Negative (Negative)
[2023-10-31 23:33] LABS: Hep A Total Ab w Rflx IgM Positive (Negative)
[2023-10-31 23:43] LABS: Hepatitis C Ab w Rflx HCV PCR Negative (Negative)
[2023-11-01 08:32] LABS: Hep A Antibody IgM Negative (Negative)
[2023-11-01 12:32] LABS: Chlamydia Result Negative (Negative); GC Result Negative (Negative)
[2023-11-01 13:30] LABS: Syphilis Serology (RPR) Negative (Negative)
[2023-11-02 10:05] LABS: HSV Type 1 Ab, IgG Positive (Negative); HSV Type 2 Ab, IgG Negative (Negative)
== END 2023-10-31 12:35 | disposition home or self-care (01) ==
LOC: LBO 12:35
PROVIDERS: Obstetrics & Gynecology Gynecology; PCP Student in an Organized Health Care Education/Training Program; Visit Provider Student in an Organized Health Care Education/Training Program
DX: Z11.3 Encounter for screening for infections with a predominantly sexual mode of transmission (principal); R53.83 Other fatigue; K90.9 Intestinal malabsorption, unspecified
CPT/HCPCS: 36415; 86709; 86803; 87340; 87389; 87491; 87591; 83540; 86592; 86695; 86696

== ENCOUNTER 2024-02-16 16:28 | Outpatient (CLI) | payer BC, SELFPAY ==
[2024-02-16 14:05] LABS: Abs Immature Grans 0.02 10^3/uL (0.0-0.06); Absolute Basophil Count 0.03 10^3/uL (0.0-0.2); Absolute Eosinophil Count 0.06 10^3/uL (0.0-0.7); Absolute Monocyte Count 0.61 10^3/uL (0.1-0.8); Absolute Neutrophil Count 5.07 10^3/uL (1.2-6.7); Basophils % 0.4 %; Eosinophils % 0.7 %; HCT 40.9 % (36.0-46.0); HGB 13.8 g/dL (11.2-15.7); Immature Grans % 0.2 %; MCH 29.9 pg (27.0-33.0); MCHC 33.7 % (32.0-36.0); MCV 89 fL (80-95); MPV 9.6 fL (8.0-11.0); Monocytes % 7.3 %; Neutrophils % 60.4 %; Platelet Count 340 10^3/uL (130-400); RBC 4.61 10^6/uL (3.93-5.22); RDW 12.5 % (11.7-14.6); RDW-SD 41.1 fL; WBC 8.39 10^3/uL (4.4-10.8)
[2024-02-16 14:17] LABS: Hemoglobin A1C 5.5 % (<5.7)
[2024-02-16 15:42] LABS: ALT 137 U/L (14-59); AST 43 U/L (15-37); Alkaline Phosphatase 81 U/L (46-116); Anion Gap 8.7 mmol/L (3-11); BUN 14 mg/dL (7-18); Bilirubin, Total 0.72 mg/dL (0.2-1.0); CO2 27.3 mmol/L (21.0-32.0); CREATININE 0.7 mg/dL (0.55-1.02); Calcium 9.6 mg/dL (8.5-10.1); Calculated LDL 172 mg/dL (<100); Chloride 103 mmol/L (98-107); Cholesterol 243 mg/dL (<200); Estimated GFR 114.16 (mL/min/1.73m2); Ferritin 129 ng/mL (8-252); Glucose 91 mg/dL (74-106); HDL Cholesterol 58 mg/dL (40-60); Potassium 3.7 mmol/L (3.5-5.1); Sodium 139 mmol/L (136-145); T4 7.5 ug/dL (4.7-13.3); TSH 2.04 uIU/mL (0.36-3.74); Total Protein 8.6 g/dL (6.4-8.2); Triglyceride 68 mg/dL (<150); Vitamin B12 686 pg/mL (193-986); Vitamin D 25 Total 39.6 ng/mL (30-100)
[2024-02-16 21:07] LABS: T3,Free 3.9 pg/mL (2.8-5.3)
[2024-02-16 21:54] LABS: Estradiol 77 pg/mL (See Note); Progesterone 3.2 ng/mL (See Table)
[2024-02-17 08:20] LABS: Insulin 8.1 uIU/mL (<29.0)
[2024-02-17 08:22] LABS: DHEA Sulfate 277 ug/dL (75-410)
[2024-02-17 09:55] LABS: Transferrin 281 mg/dL (201-352)
[2024-02-21 14:45] LABS: Testosterone, Free 0.33 ng/dL (<0.13-1.00); Testosterone, Total 14 ng/dL (8-60)
== END 2024-02-16 16:29 | disposition home or self-care (01) ==
LOC: LBO 16:29
PROVIDERS: PCP Student in an Organized Health Care Education/Training Program; Referring Provider Naturopath; Visit Provider Naturopath
DX: R09.81 Nasal congestion (principal); J31.1 Chronic nasopharyngitis; N83.291 Other ovarian cyst, right side; N92.5 Other specified irregular menstruation; R63.5 Abnormal weight gain; E04.0 Nontoxic diffuse goiter
CPT/HCPCS: 36415; 80053; 80061; 82306; 82533; 82627; 84402; 84403; 82607; 82670; 82728; 83036; 83525; 84144; 84436; 84443; 84466; 84481; 85025

== ENCOUNTER 2024-02-17 12:10 | Outpatient (REF) | payer BC, SELFPAY ==
[2024-02-17 16:10] LABS: Mono Screening Negative (Negative)
[2024-02-20 12:59] LABS: Hepatitis A Antibody IgM Negative (Negative); Hepatitis B Core Antibody Negative (Negative); Hepatitis B surface Ag Negative (Negative); Hepatitis C Ab w Rflx HCV PCR Negative (Negative)
== END 2024-02-17 12:11 | disposition home or self-care (01) ==
LOC: LBN 12:10
PROVIDERS: PCP Student in an Organized Health Care Education/Training Program; Visit Provider Nurse Practitioner Family
DX: R74.8 Abnormal levels of other serum enzymes (principal); R09.81 Nasal congestion; J31.1 Chronic nasopharyngitis; N83.299 Other ovarian cyst, unspecified side; N92.5 Other specified irregular menstruation; E04.0 Nontoxic diffuse goiter
CPT/HCPCS: 86704; 86709; 86803; 87340; 86308

== ENCOUNTER 2024-02-29 16:23 | Outpatient (REF) | payer BC, SELFPAY | END 2024-02-29 16:24 | disposition home or self-care (01) | LOC: LBN 16:23 | PROVIDERS: PCP Student in an Organized Health Care Education/Training Program; Visit Provider Advanced Practice Midwife | DX: Z87.42 Personal history of other diseases of the female genital tract (principal); Z12.4 Encounter for screening for malignant neoplasm of cervix | CPT/HCPCS: 87480; 87510; 87660 ==

== ENCOUNTER 2024-03-13 16:32 | Outpatient (CLI) | payer BC, SELFPAY ==
[2024-03-13 16:43] LABS: ALT 33 U/L (14-59); AST 15 U/L (15-37); Albumin 4.1 g/dL (3.4-5.0); Alkaline Phosphatase 76 U/L (46-116); Bilirubin, Direct 0.1 mg/dL (0.0-0.2); Bilirubin, Total 0.47 mg/dL (0.2-1.0); Total Protein 8.8 g/dL (6.4-8.2)
[2024-03-14 18:47] LABS: HIV-1/2 Ag & Ab Screen Negative (Negative)
== END 2024-03-13 16:33 | disposition home or self-care (01) ==
LOC: LBO 16:33
PROVIDERS: PCP Student in an Organized Health Care Education/Training Program; Visit Provider Nurse Practitioner Family
DX: R74.8 Abnormal levels of other serum enzymes (principal)
CPT/HCPCS: 36415; 80076; 87389

== ENCOUNTER 2024-04-19 13:07 | Outpatient (CLI) | payer BC, SELFPAY ==
[2024-04-20 10:41] LABS: Measles IgG Antibody Negative (See Note)
== END 2024-04-19 13:08 | disposition home or self-care (01) ==
LOC: LBO 13:07
PROVIDERS: Advanced Practice Midwife; PCP Student in an Organized Health Care Education/Training Program; Visit Provider Advanced Practice Midwife
DX: Z23 Encounter for immunization; Z01.84 Encounter for antibody response examination
CPT/HCPCS: 36415; 86762; 86765

== ENCOUNTER 2024-06-26 11:32 | Outpatient (CLI) | payer BC, SELFPAY ==
--- NOTE | 2024-06-26 11:30 | RT.EKG_ITS ---
APPROVED REPORT Exam: Resting ECG Reason for Exam: irregular hr Patient Location: O HR:76 bpm ECG Measurements Heart Rate 76 AXIS NH 149 P 53 QRSd 98 QRS 57 QT 380 T 14 QTc 428 Conclusion Sinus rhythm...normal P axis, V-rate 50- 99 Normal Electrocardiogram
== END 2024-06-26 11:33 | disposition home or self-care (01) ==
LOC: DI.KIM 11:33
PROVIDERS: PCP Nurse Practitioner Family; Visit Provider Nurse Practitioner Family
DX: I49.9 Cardiac arrhythmia, unspecified (principal)
CPT/HCPCS: 93010

== ENCOUNTER 2024-08-09 12:01 | Outpatient (REF) | payer BC, SELFPAY ==
--- NOTE | 2024-08-09 10:30 | PAPFT_PTH ---
PATIENT: Sri Chiang LOC: [facility] U#:[id number] AGE/SX: 39/F ROOM: RE08/09/[address]: Unique Archuleta : 1985 BED: DIS: 08/09/2024 SPEC #: [id number] RECD: 08/09/24 17:40 STATUS: LEONORA REHermelindo #: [id number] KANDACE: 08/09/24 10:[address]: Unique Archuleta DEPT: [facility] Cytology RECD BY: Maura Napier ENTERED: 08/09/24 17:41 SP TYPE: PAPFT OTHR DR: Kerri Lares APRN Tissues: 1 - CX/ENDOCX FOR PAP SMEARS Procedures: PAP THIN PREP/UVM Screening HPV DNA PROBE Comments: [id number] (HPV 16 & 18/45) (CHLAMYDIA/GC)
[2024-08-10 12:16] LABS: Chlamydia Result Negative (Negative); GC Result Negative (Negative)
== END 2024-08-09 12:02 | disposition home or self-care (01) ==
LOC: LBN 12:01
PROVIDERS: PCP Nurse Practitioner Family; Visit Provider Advanced Practice Midwife
DX: Z11.51 Encounter for screening for human papillomavirus (HPV) (principal); Z01.419 Encounter for gynecological examination (general) (routine) without abnormal findings; Z11.3 Encounter for screening for infections with a predominantly sexual mode of transmission
CPT/HCPCS: 87491; 87591; 88142; 87624

== ENCOUNTER 2024-09-20 02:45 | Outpatient (CLI) | payer BC, SELFPAY ==
[2024-09-24 17:42] LABS: Apolipoprotein B, Serum 115 mg/dL (48-124); Beta VLDL Cholesterol Not Detected mg/dL (<15); Beta VLDL Triglycerides Not Detected mg/dL (<15); Cholesterol, Total, CDC 209 mg/dL; Chylomicron Cholesterol Not Detected; Chylomicron Triglycerides Not Detected; HDL Cholesterol, CDC 38 mg/dL (>=50); LpX Not detected; Triglycerides, CDC 127 mg/dL; VLDL Triglycerides 82 mg/dL (<120)
== END 2024-09-20 02:46 | disposition home or self-care (01) ==
LOC: LBO 02:46
PROVIDERS: PCP Nurse Practitioner Family; Visit Provider Nurse Practitioner Family
DX: E78.00 Pure hypercholesterolemia, unspecified (principal)
CPT/HCPCS: 36415; 80061; 82172; 82664

== ENCOUNTER 2024-12-17 10:31 | Outpatient (CLI) | payer BC, SELFPAY ==
[2024-12-17 16:13] LABS: Hemoglobin A1C 5.5 % (<5.7)
[2024-12-17 17:03] LABS: Calculated LDL 178 mg/dL (<100); Cholesterol 250 mg/dL (<200); HDL Cholesterol 44 mg/dL (>or=50); Triglyceride 144 mg/dL (<150)
[2024-12-18 18:53] LABS: Hepatitis C Ab w Rflx HCV PCR Negative (Negative)
== END 2024-12-17 10:32 | disposition home or self-care (01) ==
LOC: LBO 10:31
PROVIDERS: PCP Nurse Practitioner Family; Visit Provider Nurse Practitioner Family
DX: Z20.5 Contact with and (suspected) exposure to viral hepatitis (principal); Z00.00 Encounter for general adult medical examination without abnormal findings
CPT/HCPCS: 36415; 80061; 86803; 83036

== ENCOUNTER 2024-12-17 17:44 | Emergency (ER) | payer BC, SELFPAY ==
[2024-12-17 17:49] VITALS: BP 118/76; PULSE 85; RESP 18; O2SAT 98
--- NOTE | 2024-12-17 18:00 | DI.RAD_ITS ---
Exam(s) XR ANKLE RT COMPLETE EXAM: XR ANKLE RT COMPLETE CLINICAL HISTORY: right lateral ankle pain. TECHNIQUE: 2D digital imaging was performed. COMPARISON: No exams were available for comparison FINDINGS: 3 views There is a subtle nondisplaced transverse fracture of the lateral malleolus of the distal fibula. There is no widening the ankle mortise. Talar dome appears unremarkable. There is the small inferior calcaneal spur. No osseous tarsal coalition evident. Base of the 5th metatarsal appears intact. IMPRESSION: Nondisplaced subtle transverse fracture in the distal fibula DATA REPOSITORY: RADIATION DOSE DELIVERED:
[2024-12-17] MEDS: Ibuprofen 600 MG TAB PO (18:31)
[2024-12-17 20:24] VITALS: BP 126/79; PULSE 74; RESP 18; TEMP 36.7; O2SAT 98
--- NOTE | 2024-12-18 16:39 | ED.GENADUL_ITS ---
Discharge Plan Disposition Patient Disposition: Home Condition: Stable Discharge Details Clinical Impression: Fibula fracture Primary Care Provider: Kerri Lares ED Provider: Maura Cheung Home Meds and New Rx's Prescriptions: Continued Mirena 20 mcg/24 hours (6 yrs) 52 mg intrauterine device 1 device intrauterine ONCE Patient Comments: 01/24/2020 Rx Instructions: as a single dose cholecalciferol (vitamin D3) 125 mcg (5,000 unit) capsule 125 mcg PO .QOD omega-3 fatty acids 1,000 mg capsule 1,000 mg PO DAILY Discharge Instructions Instructions: Lower Leg Fracture ED Additional Instructions: Keep your boot in place Weightbearing as tolerated with boot in place, you also have crutches to support weightbearing Motrin every 8 hours as needed for pain with food Follow-up with orthopedics, I have placed a referral You develop worsening pain, shortness of breath, increased swelling or strength or sensation changes to your lower EXTR please return for reassessment Stand Alone Forms: Work Release Referrals: Jay Cardona MD [ [facility] STAFF PHYSICIAN, Orthopaedic Surgical] Discharge Data Discharge Date/Time-TO BE ENTERED AT DEPARTURE: 12/17/24 20:32 HPI General Date/Time Provider Initiated Documentation: 12/17/24 17:49 . HPI Narrative: This 39-year-old female who is otherwise healthy presents with pain to her right ankle. She states that she was working out and felt a pop and instant pain. She became lightheaded and vomited once. She denies any chance of or any additional injuries. She has been unable to put much weight on the extremity since the event occurred. She has any numbness or tingling to the area of her foot. She denies any pain to her knee. Related Data Home Medications ?Medication ?Instructions ?Recorded ?Confirmed levonorgestrel (Mirena) 1 device intrauterine ONCE 0 02/25/20 12/17/24 cholecalciferol (vitamin D3) 125 125 mcg PO .QOD 06/2610/15/24 mcg (5,000 unit) capsule omega-3 fatty acids 1,000 mg 1,000 mg PO DAILY 5 10/15/24 capsule Allergies Allergy/AdvReac Type Severity Reaction Status Date / Time No Known Allergies Allergy Verified 12/17/24 17:50 General Stated Complaint: Orthopedic MINNIE: 4 Exam Narrative Exam Narrative: Right lateral malleolus with tenderness and swelling, no tenderness to right knee neurovascularly intact no tenderness to foot Course Vital Signs Vital signs: Vital Signs Pulse 85 12/17/24 17:49 Respiratory Rate 18 12/17/24 17:49 Blood Pressure 118/76 12/17/24 17:49 Pulse Oximetry 98 12/17/24 17:49 Temperature 36.7 C 12/17/24 20:24 Pulse 74 12/17/24 20:24 Respiratory Rate 18 12/17/24 20:24 Blood Pressure 126/79 12/17/24 20:24 Pulse Oximetry 98 12/17/24 20:24 Pain Level 5 12/17/24 20:24 Medical Decision Making Results: X-ray of right ankle shows nondisplaced fibular fracture, distally Assessment and plan: Patient exercising with injury to right ankle. X-ray displays fibular fracture. Patient was placed in a tall boot with crutches. Work note supplied. Motrin and Tylenol as needed pain. Follow-up with orthopedics, placed on referral list return precautions reviewed and patient expressed understanding PFSH All Active Problems (Updated 12/17/24 @ 19:30 by FARHAD Chi) Fibula fracture (Acute) Exposure to hepatitis C (Acute) Vulvar lesion (Acute) Sore throat (Acute) Dizziness (Acute) Irregular heart rate (Acute) Obesity (BMI 30-39.9) (Acute) Healthcare maintenance (Acute) Preventative health care (Acute) Ovarian cyst (Acute) IUD surveillance (Acute ~01/2020) Mirena Contraceptive device, intrauterine (Acute) Anxious mood (Chronic) Abnormal liver enzymes (Acute) Situational stress (Acute) Malaise (Acute) Acne rosacea (Acute) Screen for STD (sexually transmitted disease) (Acute) Encounter for immunization (Acute) Vaginal irritation (Acute) Urinary urgency (Acute) Elevated serum glucose (Acute) A1C 5.5 (02/2022), so not yet pre-diabetes (5.7 - 6.4) Recent weight loss (Acute) Antibiotic-induced yeast infection (Acute) Just completed Diflucan #2, 04/2022.. Presumed ABx; possible pH? possible immun? Vitamin D deficiency (Acute) 2020 .. [ ] 2022 Hx of vaginitis (Chronic) Atypical UTI (Neg Cx?); BVx1; Frequent Yeast Infectns.. Renal duplicate collecting system, right (Acute) Duplex kidney (lft) .. Hydronephrosis (rt) Medical History (Updated 12/17/24 @ 19:30 by FARHAD Chi) Cystitis Negative Pelvic pain improved by IUD High risk HPV infection Neg/Neg (2023)... (+) after several (-), s/p Hx (+) Recurrent UTI (urinary tract infection) Negative work-up... seen by [facility]ilingual Medical Assistant (2023) .. E. coli 10/28/22 Family history of breast cancer Mo, but declined genetic testing Situational depression Macromastia Hyperlipidemia 02/2022 cholesterol 206, HDL 145, LDL 41 Dyspareunia in female Improved, 10/2022 Incomplete prolapse of anterior wall of vagina STD exposure Surgical History (Updated 04/25/22 @ 00:57 by Bruna Kay DO) Repair, ACL (~2011) r repair w/o c/o. [facility] Family History (Updated 08/09/24 @ 10:45 by Unique Archuleta CNM) Mother Hyperlipidemia Breast cancer Diverticulitis Grandmother Breast cancer Dementia Hyperlipidemia Paternal Grandmother Dementia Maternal Aunt Hyperlipidemia Other Heart disease Social History (Updated 10/29/22 @ 11:45 by Katy Aguirre RN) Smoking/Tobacco Use Status: Never Smoking risk assessment performed?: Yes Alcohol Intake: current Alcohol Intake frequency: holidays/special occasions only Drug use: Never Substance use type: does not use Adopted: No Caregiver/Support person: No Foster care: No Household members: children Housing: house Number of Children: 2 Communication Needs: None Education Level: college Details: bachelor's degree Do you need help understanding health information?: Never current occupation: RN Pets and animals: Yes Pets and animals: cat(s) and dog(s) Sexually active: Yes Do you think of yourself as: straight/heterosexual Current gender identity: female What is your relationship status?: never How often do you talk on the phone with friends or family?: three or more times per week How often do you get together with friends or relatives?: three or more times per week Do you belong to any clubs or organized social groups?: yes Panel score (0-1 are the most socially isolated patients): 2 What type of physical activity do you participate in: bicycling, weight lifting and running Duration: 30-45 minutes/day Frequency: 3-4 times per week Vanessa/Anglican: None Special vanessa needs: No Seatbelt use: always Helmet use: Yes Helmet use: always Drive intox or ride w/intox warehouse associate driver: No Do you feel safe in your relationship?: Yes Female Reproductive History Menstrual control method: progestin IUCD History History 2 Para 2 Hx # Term Pregnancies Multiple births Hx # Pregnancies Ectopic pregnancies AB induced Hx Number of Living Children AB spontaneous
== END 2024-12-17 20:32 | disposition home or self-care (01) ==
PROVIDERS: Emergency Provider Physician Assistant; PCP Nurse Practitioner Family
DX: S82.831A Other fracture of upper and lower end of right fibula, initial encounter for closed fracture (principal); X50.9XXA Other and unspecified overexertion or strenuous movements or postures, initial encounter
CPT/HCPCS: 99283 ×2; 29515; 73610

== ENCOUNTER 2024-12-24 13:45 | Outpatient (CLI) | payer BC, SELFPAY ==
--- NOTE | 2024-12-24 11:35 | DI.RAD_ITS ---
Exam(s) XR ANKLE RT COMPLETE EXAM: XR ANKLE RT COMPLETE CLINICAL HISTORY: F/U R DISTAL FIB FX. TECHNIQUE: 2D digital imaging was performed. COMPARISON: CR XR ANKLE RT COMPLETE from 12/17/2024 FINDINGS: 3 views The previously described subtle nondisplaced transverse fracture line in the distal fibula is no longer evident. There is presently no evidence of fracture or widening the ankle mortise. Talar dome unremarkable. No degenerative changes nor osteochondral defects. There is a small inferior calcaneal spur. There are no abnormal calcifications in the plantar fascia. No osseous tarsal coalition. IMPRESSION: There has been significant healing at the subtle nondisplaced transverse fracture site in the distal fibula. DATA REPOSITORY: RADIATION DOSE DELIVERED:
== END 2024-12-24 13:46 | disposition home or self-care (01) ==
LOC: DIORS 12-25 08:53
PROVIDERS: PCP Nurse Practitioner Family; Visit Provider Student in an Organized Health Care Education/Training Program
DX: S82.409A Unspecified fracture of shaft of unspecified fibula, initial encounter for closed fracture (principal)
CPT/HCPCS: 73610